=== PATIENT | male | born 2000 | race Hispanic/Latino ===

== ENCOUNTER 2022-08-31 01:19 | Emergency (ER) | payer SELFPAY | END 2022-08-31 01:43 | disposition home or self-care (01) | LOC: CSHERS 01:19 | DX: K60.2 Anal fissure, unspecified (principal) | CPT/HCPCS: 99283 ==

== ENCOUNTER 2022-10-09 00:54 | Emergency (ER) | payer SELFPAY ==
[2022-10-09] MEDS ORDERED: Ondansetron ODT 4 MG TAB ONE (03:10)
[2022-10-09] MEDS ORDERED: Ibuprofen 200 MG TAB ONE (03:10)
== END 2022-10-09 03:11 | disposition home or self-care (01) ==
LOC: CSHERS 00:54
DX: T67.5XXA Heat exhaustion, unspecified, initial encounter (principal); G43.909 Migraine, unspecified, not intractable, without status migrainosus; E86.0 Dehydration; M62.838 Other muscle spasm; R11.0 Nausea
CPT/HCPCS: 99283; Q0162